=== PATIENT | male | born 1965 | race Caucasian/White ===

== ENCOUNTER 2021-01-31 07:55 | Day surgery (SDC) | payer OTHER ==
[2021-01-27 11:27] VITALS: BMI 23.1
[2021-01-31] MEDS ORDERED: Levofloxacin 500 mg/D5W 100 ml Premix Bag ONE (08:40)
[2021-01-31] MEDS ORDERED: Iothalamate Meglumine 60% 30 ML VIAL FS ONE (12:54)
[2021-01-31] MEDS ORDERED: Fentanyl 100 MCG/2 ML VIAL ONE ×3 (12:57→14:24)
[2021-01-31] MEDS ORDERED: Ketorolac Tromethamine 30 MG/ML VIAL ONE (13:02)
[2021-01-31] MEDS ORDERED: Lidocaine 1% PF 5 ML VIAL ONE (13:02)
[2021-01-31] MEDS ORDERED: PROPOFOL 200 MG/20 ML VIAL ONE (13:02)
[2021-01-31] MEDS ORDERED: Ondansetron PF 4 MG/2 ML Vial ONE (13:02)
[2021-01-31] MEDS ORDERED: Dexamethasone 20 MG/5 ML VIAL ONE (13:02)
[2021-01-31] MEDS ORDERED: Oxybutynin 5 MG TAB ONE (13:59)
== END 2021-01-31 15:45 | disposition home or self-care (01) ==
LOC: SDC 07:55
PROVIDERS: ATTEND Urology
PROC: 0TC78ZZ Extirpation of Matter from Left Ureter, Via Natural or Artificial Opening Endoscopic (ICD-10-PCS; principal; 2021-01-31)
PROC: 0T778DZ Dilation of Left Ureter with Intraluminal Device, Via Natural or Artificial Opening Endoscopic (ICD-10-PCS; principal; 2021-01-31)
DX: N20.1 Calculus of ureter (principal); F17.220 Nicotine dependence, chewing tobacco, uncomplicated; Z79.899 Other long term (current) drug therapy
CPT/HCPCS: 74420; 93005; 93010; C2617; J1100; J1885; J1956; J2405; J2704; J3010

== ENCOUNTER 2021-09-14 09:39 | Outpatient (CLI) | payer OTHER | END 2021-09-14 09:40 | disposition home or self-care (01) | LOC: BICRAD 09:39 | PROVIDERS: ATTEND Urology | DX: N20.0 Calculus of kidney (principal); N28.89 Other specified disorders of kidney and ureter | CPT/HCPCS: 74018 ==